=== PATIENT | female | born 1960 | race Caucasian/White ===

== ENCOUNTER 2019-07-18 09:23 | Emergency (ER) | payer BC ==
[~2019-07-18] VITALS: Ht 177.8 cm; Wt 95.0 kg
--- NOTE | 2019-07-18 09:56 | PHYS DOC ---
Past Medical History Past Medical History: Anxiety, Depression, Hypertension Past Surgical History: Hysterectomy Additional Past Surgical Histo: lower back surgery, Smoking Status: Never Smoker Alcohol Use: None General Adult EDM: Chief Complaint: MULTIPLE COMPLAINTS HPI: HPI: 58-year-old female presents with a chief complaint of frontal migraine headache. Patient states she has a previous history of headaches and current headache is similar to previous. Patient states she normally takes ibuprofen for her pain daily. Patient states preoperatively patient had stopped taking ibuprofen at the request of her surgeon. Patient states headache is been present since July 09. Pain is progressively worse since onset. Patient's pain is located in the frontal region. Patient states she has associated nausea and vomiting. Patient tells me she has been taking [id number] Tylenol with improvement but pain usually returns 4 to 6 hours post medication. Patient tells me her lower back has improved since surgery. She denies any saddle anesthesia no loss of bowel bladder. Patient denies any headache or neck pain. Review of Systems: Review of Systems: Constitutional: Denies fever or chills. [] Eyes: Denies change in visual acuity. [] HENT: Denies nasal congestion or sore throat. [] Respiratory: Denies cough or shortness of breath. [] Cardiovascular: Denies chest pain or edema. [] GI: Denies abdominal pain, vomiting, bloody stools or diarrhea. [Positive nausea] : Denies dysuria. [] Musculoskeletal: Denies back pain or joint pain. [] Integument: Denies rash. [] Neurologic: Denies, focal weakness or sensory changes. [Positive headache] Endocrine: Denies polyuria or polydipsia. [] Lymphatic: Denies swollen glands. [] Psychiatric: Denies depression or anxiety. [] Heart Score: Risk Factors: Risk Factors: DM, Current or recent (<one month) smoker, HTN, HLP, family history of CAD, obesity. Risk Scores: Score 0 - 3: 2.5% MACE over next 6 weeks - Discharge Home Score 4 - 6: 20.3% MACE over next 6 weeks - Admit for Clinical Observation Score 7 - 10: 72.7% MACE over next 6 weeks - Early Invasive Strategies Allergies: Allergies: Allergies Coded Allergies Type Severity Reaction Last Updated Verified indomethacin Allergy Severe hypertension 07/18/19 Yes diclofenac Allergy Intermediate rash 07/18/19 Yes meloxicam Allergy Intermediate rash 07/18/19 Yes Physical Exam: PE: Constitutional: Well developed, well nourished, no acute distress, non-toxic appearance. [] HENT: Normocephalic, atraumatic, bilateral external ears normal, oropharynx moist, no oral exudates, nose normal. [] Eyes: PERRLA, EOMI, conjunctiva normal, no discharge. [] Neck: Normal range of motion, no tenderness, supple, no stridor. [] Cardiovascular:Heart rate regular rhythm, no murmur [] Lungs & Thorax: Bilateral breath sounds clear to auscultation [] Abdomen: Bowel sounds normal, soft, no tenderness, no masses, no pulsatile masses. [] Skin: Warm, dry, no erythema, no rash. [] Back: No tenderness, no CVA tenderness. [] Extremities: No tenderness, no cyanosis, no clubbing, ROM intact, no edema. [] Neurologic: Alert and oriented X 3, normal motor function, normal sensory function, no focal deficits noted. [] Psychologic: Affect normal, judgement normal, mood normal. [] Current Patient Data: Vital Signs: Vital Signs Date Time Temp Pulse Resp B/P (MAP) Pulse Ox O2 Delivery O2 Flow Rate FiO2 07/18/19 09:28 97.5 94 18 164/84 (110) 98 Room Air 97.5 EKG: EKG: [] Radiology/Procedures: Radiology/Procedures: [] Course & Med Decision Making: Course & Med Decision Making Pertinent Labs and Imaging studies reviewed. (See chart for details) [] Patient was evaluated for chief complaint. Treatment included Toradol Zofran. Patient's pain improved post treatment. Patient was discharged home with Tylenol 3 and Zofran. No clinical concern for meningitis. Patient's history not consistent with spinal headache. Dragon Disclaimer: Tapactive Disclaimer: This electronic medical record was generated, in whole or in part, using a voice recognition dictation system. Departure Departure Impression: Primary Impression: Headache Qualified Codes: R51 - Headache Disposition: 01 HOME, SELF-CARE Condition: STABLE Referrals: UNKNOWN PCP NAME (PCP) Scripts Acetaminophen With Codeine (TYLENOL WITH CODEINE #3 TABLET) 1 Each Tablet 1 TAB PO PRN Q4HRS PRN for PAIN, #20 TAB Prov: FRANKLYN LEVI DO 07/18/19 Ondansetron Hcl (ZOFRAN) 4 Mg Tablet 1 TAB PO Q6HRS, #20 TAB Prov: FRANKLYN LEVI I DO 07/18/19 Acetaminophen (TYLENOL) 325 Mg Tablet 1-2 TAB PO QID, #20 TAB 2 Refills Prov: FRANKLYN LEVI I DO 07/18/19 FRANKLYN LEVI I DO July 18, 2019 09:56
[2019-07-18] MEDS ORDERED: ACET325T9 PO (09:59)
[2019-07-18] MEDS ORDERED: ACETAMINOPHEN 325 MG TABLET. PO ONE (10:00)
[2019-07-18] MEDS ORDERED: ACET-704 PO (10:21)
[2019-07-18] MEDS ORDERED: ONDA4TAB7 PO (10:21)
[2019-07-18] MEDS ORDERED: KETOROLAC 60 MG/2 ML VIAL. ONE (10:22)
[2019-07-18 10:26] VITALS: BP 157/83
[2019-07-18] MEDS ORDERED: KETOROLAC 60 MG/2 ML VIAL. IM ONE (10:30)
[2019-07-18] MEDS ORDERED: ONDANSETRON ODT 4 MG TAB.RAPDIS. PO ONE (10:30)
== END 2019-07-18 11:20 | disposition home or self-care (01) ==
LOC: ER 09:23
DX: R51 Headache (principal); R11.2 Nausea with vomiting, unspecified; F41.9 Anxiety disorder, unspecified; F32.9 Major depressive disorder, single episode, unspecified; I10 Essential (primary) hypertension; Z90.710 Acquired absence of both cervix and uterus; Z98.890 Other specified postprocedural states; Z88.8 Allergy status to other drugs, medicaments and biological substances; Z88.6 Allergy status to analgesic agent
CPT/HCPCS: 96372; 99283; J1885; Q0162